=== PATIENT | male | born 1985 | race Caucasian/White ===

== ENCOUNTER → 2018-10-02 | Outpatient (CLI) | payer OTHER ==
[~2018-10-02] MED LIST: CONTRAST GIVEN. MC PRN; GADOBUTROL 7.5 MMOL/7.5 ML VIAL INT ART ONE; IOHEXOL 300 MG/ML 50 ML VIAL. IJ ONE
--- NOTE | 2018-10-02 09:47 | RAD ---
EXAM: Fluoroscopically guided left shoulder injection for MR arthrography. 10/02/2018 HISTORY: Left shoulder pain with no known injury COMPARISON: Left shoulder radiograph 09/24/2018. TECHNIQUE: The risks and benefits of the procedure were discussed with the patient and written and verbal consent were obtained. A time out procedure was performed. Fluoroscopic imaging of the left shoulder was performed. The overlying skin was sterilely prepped and infiltrated with 1% lidocaine for local anesthesia. A 22-gauge spinal needle was then advanced into the joint space under fluoroscopic guidance. Intra-articular positioning positioning was confirmed with a small injection of iodinated contrast. 12 mL of 1:200 dilution gadolinium contrast with saline and iodinated contrast was injected under fluoroscopic control. Instrumentation was withdrawn and a sterile dressing placed. There were no immediate complications. The patient was transferred to the MR suite for additional imaging. Refer to the MR report for additional detail. Total fluoroscopy time: 0.9 minutes. Total fluoroscopic spot images: 1 IMPRESSION: Successful fluoroscopically guided left shoulder injection for MR arthrography. Please refer to the separate MR report for additional detail. Electronically signed by: Oscar Yoo MD (10/02/2018 9:42 AM) [facility]
--- NOTE | 2018-10-02 12:13 | RAD ---
EXAM: MR arthrogram left shoulder With intra-articular contrast DATE: 10/02/2018 9:45 AM COMPARISON: 09/24/2018 INDICATION: LEFT SHOULDER ARTHROGRAM, PAIN WITH LIMITED ROM X 3 MONTHS TECHNIQUE: Multiplanar, multisequence MRI of the left shoulder was performed without IV contrast although intra-articular gadolinium contrast was administered to the left shoulder. Please see separate report for full details. FINDINGS: Iatrogenic distention of the left glenohumeral joint with gadolinium contrast. No significant subacromial-subdeltoid bursal fluid. Mild AC joint degenerative changes small associated osteophytes and mild capsular thickening. No os acromiale. Type II acromion. No rotator cuff tear is identified. Normal muscle signal and bulk. Intra-articular long head biceps tendon is normal in signal and morphology. Extra articular long head biceps tendon is seen within the bicipital groove. Multiloculated cystic structure is seen arising from the superior labrum extending into the suprascapular and spinoglenoid notch. Given the atypical morphology of the cyst accurate measurement is precluded but this measures approximately 2.4 x 2 x 0.8 cm. Contrast extension into the labral chondral junction of the superior labrum suggesting short segment labral tear. Bone marrow signal is normal. Negative findings of AVN or fracture. Survey of articular cartilage within normal limits. IMPRESSION: 1. Complex multiseptated cyst appears to arise from the superior labrum extending to the spinoglenoid and subscapular notch without rotator cuff muscle atrophy/edema. 2. Short segment SLAP tear 3. Mild AC joint degenerative changes. Electronically signed by: Francois Elder MD (10/02/2018 12:08 PM) [id number]
== END | disposition home or self-care (01) ==
LOC: RAD 10-01 10:00
PROVIDERS: ATTEND Orthopaedic Surgery
DX: S43.432A Superior glenoid labrum lesion of left shoulder, initial encounter (principal); M19.012 Primary osteoarthritis, left shoulder; X58.XXXA Exposure to other specified factors, initial encounter; Y93.89 Activity, other specified; Y92.89 Other specified places as the place of occurrence of the external cause; Y99.8 Other external cause status; K08.409 Partial loss of teeth, unspecified cause, unspecified class
CPT/HCPCS: 23350; 73222; 77002; A9585; Q9967; 20605; 20610

== ENCOUNTER 2018-11-02 07:53 | Day surgery (SDC) | payer OTHER ==
[~2018-11-02] VITALS: Ht 167.6 cm; Wt 83.5 kg
[~2018-11-02 07:53] MED LIST changes: -CONTRAST GIVEN. MC PRN; -GADOBUTROL 7.5 MMOL/7.5 ML VIAL INT ART ONE; +HYDROmorphone 2 MG/ML VIAL IV PRN; -IOHEXOL 300 MG/ML 50 ML VIAL. IJ ONE; +IV RINGERS,LACTATED 1000ML 1,000 ML IV SCH; +MORPHINE SULFATE 2 MG/ML VIAL. IV PRN; +ONDANSETRON PF 4 MG/2 ML VIAL. IV PRN; +PROCHLORPERAZINE 10 MG/2 ML VIAL. IV PRN; +fentaNYL PF VIAL 100 MCG/2 ML VIAL IV PRN
[2018-11-02] MEDS ORDERED: DEXT20TA2 PO (08:46)
[2018-11-02] MEDS ORDERED: LIDOCAINE 2% PF 5 ML VIAL. ONE (09:29)
[2018-11-02] MEDS ORDERED: PROPOFOL 20 ML IV ONE (09:29)
[2018-11-02] MEDS ORDERED: ONDANSETRON PF 4 MG/2 ML VIAL. ONE (09:29)
[2018-11-02] MEDS ORDERED: DEXAMETHASONE SOD PHOS 20 MG/5 ML VIAL. ONE (09:29)
[2018-11-02] MEDS ORDERED: ROCURONIUM 50 MG/5 ML VIAL. ONE (09:29)
[2018-11-02] MEDS ORDERED: fentaNYL PF VIAL 100 MCG/2 ML VIAL ONE (09:30)
[2018-11-02] MEDS ORDERED: MIDAZOLAM HCL/PF 2 MG/2 ML VIAL. ONE (09:30)
[2018-11-02] MEDS ORDERED: ROPIVacaine 0.5% PF 20 ML VIAL. ONE (09:39)
[2018-11-02] MEDS ORDERED: ceFAZolin SODIUM 1 GM VIAL ONE (11:07)
[2018-11-02] MEDS ORDERED: KETOROLAC 30 MG/ML INJ FOR OR. INJ ONE (11:13)
[2018-11-02] MEDS ORDERED: GLYCOPYRROLATE 1 MG/5 ML VIAL. ONE (11:13)
[2018-11-02] MEDS ORDERED: SEVOFLURANE 61 TO 120 MINUTES. IH ONE (11:25)
--- NOTE | 2018-11-02 11:53 | DISCH ---
DISCHARGE INSTRUCTIONS Condition on Discharge Condition on Discharge: Stable Activity After Discharge Activity Instructions for Disc: Other, see below (gentle pendulum motion to shoulder and fine motor use with elbow at side only no pushing pulling lifting) Lifting Instructions after Dis: No heavy lifting, No pulling or pushing Weight Bearing Status after Di: Non weight bearing Diet after Discharge Diet after Discharge: Regular Wound Incision Care Wound/Incision Care: Ice to area for comfort, Change dressing (May remove dressing in 2 days may then shower no soaking until sutures removed) Community/Resources/Services Services at Discharge: PT EVALUATE & TREAT (I do not plan physical therapy until about a month postoperatively pending adequate healing) Contacting the DR[facility]abnam after DC Call your doctor for: Concerns you may have Follow-Up Follow up with: Padilla 7-10 days MARCOS HEATH MD Nov 02, 2018 11:53
[2018-11-02] MEDS ORDERED: OXYC1TAB19 PO (11:54)
[2018-11-02] MEDS ORDERED: oxyCODONE/APAP 5/325 1 TAB TABLET PO ONE (12:30)
[2018-11-02 13:00] VITALS: BP 138/78
--- NOTE | 2018-11-02 17:51 | PDOC4 ---
Operative Note Operative Note Date of surgery: 11/02/2018 Preoperative diagnosis: SLAP tear left shoulder Postoperative diagnosis: Same Operative procedure: Left shoulder arthroscopy and SLAP repair Surgeon: Padilla Anesthesia: Gen. plus scalene block Estimated blood loss: 10 mL Complications: None Operative indications: Please see my clinic note for detailed operative indications and note that he is a 32-year-old male in [employer] who has had ongoing left shoulder pain difficulty lifting overhead or away from his body despite extensive nonoperative treatment and physical therapy. MRI showed a SLAP tear as expected and I went over with him possible operative versus nonoperative treatments and depending on the condition of the superior labrum the possibility of SLAP repair versus biceps tenodesis and a dressing appropriately any other pathology. All his questions were answered including the possibility of continued pain nonhealing nerve or blood vessel damage infection medical or other anesthetic complications among others and he is aware of the restrictions in the recovery process and the rationale for this. Operative text: Patient was identified procedure verified patient placed in the supine position on the operative table. After adequate amounts of general anesthesia were administered he was placed in the decubitus position left side up all bony prominences were well-padded and the left shoulder was examined under anesthesia. He was noted to have full range of motion no instability present although I did elicit clicking with stressing the superior labrum. The left shoulder was then prepped and draped in standard sterile fashion placed in the arthroscopic arm [place] with a total of 15 pounds of traction and after timeout was performed patient procedure identified and verified a standard posterior portal was established an anterior portal established using spinal needle localization and the shoulder joint was systematically examined. He was noted to have a large superior labral tear with an accompanying sub-labral foramen and cordlike middle glenohumeral ligament. The biceps tendon and anchor area were otherwise uncompromised as was the rotator cuff insertion including subscapularis and the remainder capsule ligament structures were likewise normal. The superior glenoid was uncovered of labrum from about the 10 o'clock position to 1 o'clock position and then extending further the length of the sub- labral foramen which is a normal anatomic variant. Superior aspect of the glenoid was burred down to bleeding bone and SLAP repair was carried out by establishing a posterior lateral corner portal through the muscle of the rotator cuff sutures were placed a total of 2 behind the biceps anchor and one suture anterior to the biceps anchor and drilling was carried out to accommodate 2.9 mm Quattro link knotless peek anchors, the first of which was placed at approximately the 11 o'clock position the next positioned just posterior to the biceps anchor and the final anchor placed just anterior to the biceps anchor. Excellent fixation was noted and elimination of peelback was verified with motion and probing with the arthroscopic probe. Excellent apposition to bleeding bone was noted following the repair. The joint was then drained of arthroscopic fluid portals closed with nylon suture sterile dressings were applied patient was placed in immobilizer extirpated transferred to postop holding in stable condition having tolerated procedure well MARCOS HEATH MD Nov 02, 2018 17:51
== END 2018-11-02 13:15 | disposition home or self-care (01) ==
LOC: SURG 07:53
PROVIDERS: ATTEND Orthopaedic Surgery
DX: S43.432A Superior glenoid labrum lesion of left shoulder, initial encounter (principal); X50.0XXA Overexertion from strenuous movement or load, initial encounter; Y93.89 Activity, other specified; Y92.89 Other specified places as the place of occurrence of the external cause; Y99.8 Other external cause status
CPT/HCPCS: 29807; A7015; J0690; J1100; J1885; J2001; J2250; J2405; J2704; J2795; J3010; J3490; J7120; C1769